=== PATIENT | male | born 2000 | race African-American/Black ===

== ENCOUNTER 2021-12-15 03:25 | Emergency (ER) | payer SELFPAY ==
[~2021-12-15] VITALS: Ht 170.2 cm; Wt 83.0 kg
[2021-12-15 03:25] VITALS: BP 141/90
--- NOTE | 2021-12-15 03:25 | NUR ---
PT JASE DIAMOND. TAKE TO BED 5
--- NOTE | 2021-12-15 03:48 | NUR ---
Dr. Doty examining patient.
[2021-12-15] MEDS ORDERED: LORazepam 2 MG/ML VIAL IM ONE (03:55)
[2021-12-15] MEDS ORDERED: HALOPERIDOL IM 5 MG/ML VIAL IM ONE (03:55)
[2021-12-15] MEDS ORDERED: diphenhydrAMINE 50 MG/ML VIAL IM ONE (03:55)
--- NOTE | 2021-12-15 04:20 | NUR ---
25/M BIBA AFTER BEING FOUND RUNNING ON THE STRE[address] NAKED ON [employer] AND [employer]. PER PD PATIENT HAD ALTERED MENTAL STATUS WITH HX OF DEPRESSION. PATIENT TALKING STATED "I KNOW MY NAME BUT I DONT HAVE TO TELL YOU. IM ONLY GOING TO TELL YOU THE NAME OF MY LORD AND SAVIOR." PATIENT RR EVEN AND UNLABORED. DOESNT APPEAR TO BE IN DISTRESS. PATIETN NOT COMPLIANT IN ANSWERING QUESTIONS AT THIS TIME. PATIENT PLACED IN BED. BED IN LOWEST POSITION AND LOCKED. GEORGE SIDE RAILS IN PLACE. ALL NEEDS MET. PMHX UNOBTAINABLE MEDS UNOBTAINABLE ALLERGIES UNOBTAINABLE
--- NOTE | 2021-12-15 04:30 | NUR ---
PATIETN ANXIOUS AND SCREAMING "YOU GUYS ARE RAPING ME". MD SRIVASTAVA AT BEDSIDE. SECURITY CALLED.
[2021-12-15] MEDS ORDERED: OLAN7.5T1 PO (04:51)
--- NOTE | 2021-12-15 05:30 | NUR ---
PATIENT RESTING IN BED. BED LOW AND LOCKED. GEORGE SIDE RAILS UP FOR SAFETY. ALL NEEDS MET AT THIS TIME.
--- NOTE | 2021-12-15 07:15 | NUR ---
REPORT GIVEN TO EDWIN BURKS. TRANSFER OF CARE.
--- NOTE | 2021-12-15 07:19 | NUR ---
RECIEVED REPORT FROM EDWIN EDWARDS FOR TRANSFER.
--- NOTE | 2021-12-15 08:02 | NUR ---
Patient appears to be resting comfortably in bed. Vital Signs within normal limits. Respirations even and unlabored. PT AAOX4, PT SITTING UP EATTING BREAKFAST. WARM CLOTHES GIVEN. PT GIVEN HOMELESS PATIENT WAIVER/SIGNATURE ON WAIVER.
--- NOTE | 2021-12-15 08:15 | NUR ---
PT OFFERED A UBER REFUSED STS "I WANT TO WALK."
[2021-12-15 09:58] VITALS: BP 122/75
--- NOTE | 2021-12-15 10:08 | NUR ---
PT STILL I ER LOBBY MORE FOOD GIVEN. PT REFUSED UBER AGAIN. [facility] SECURITY CALLED
== END 2021-12-15 09:58 | disposition home or self-care (01) ==
LOC: EDBD 03:25 → MED 03:25
DX: F20.9 Schizophrenia, unspecified (principal); R41.82 Altered mental status, unspecified; Z98.890 Other specified postprocedural states; Z79.899 Other long term (current) drug therapy
CPT/HCPCS: 96372; 99284; J1200; J1630; J2060